=== PATIENT | male | born 1995 | race Caucasian/White ===

== ENCOUNTER 2018-11-03 12:35 | Emergency (ER) | payer OTHER ==
[2018-11-03 12:55] VITALS: BP 145/70
--- NOTE | 2018-11-03 13:28 | UC ---
Back Pain HPI - HPI Summary HPI Summary: 23-year-old male comes in with a chief complaint of low back pain. Pain started today while lifting and twisting and bending at work. Pains in the low back and does radiate some to the left upper buttock. Pain does not go down the legs no weakness no numbness no difficulty controlling urine or bowels. Pain is worse with twisting turning and bending especially with leaning forward. Patient did take some ibuprofen which helped briefly but then the pain came back. No prior history of back problems. - History of Current Complaint Chief Complaint: UCBackPain Stated Complaint: LOW BACK INJ Time Seen by Provider: 11/03/18 13:04 Pain Intensity: 5 - Allergies/Home Medications Allergies/Adverse Reactions: Allergies Allergy/AdvReac Type Severity Reaction Status Date / Time No Known Allergies Allergy Verified 11/03/18 12:48 Home Medications: Home Medications NK [No Home Medications Reported] 11/03/18 [History Confirmed 11/03/18] PMH/Surg Hx/FS Hx/Imm Hx Previously Healthy: Yes - Surgical History Surgical History: Yes Surgery Procedure, Year, and Place: LEFT WRIST- PLATE/SCREWS - Family History Known Family History: Positive: Non-Contributory - Social History Alcohol Use: Occasionally Substance Use Type: None Smoking Status (MU): Never Smoked Tobacco - Immunization History Most Recent Tetanus Shot: UNK Review of Systems All Other Systems Reviewed And Are Negative: Yes Constitutional: Positive: Negative Skin: Positive: Negative Eyes: Positive: Negative ENT: Positive: Negative Respiratory: Positive: Negative Cardiovascular: Positive: Negative Gastrointestinal: Positive: Negative Genitourinary: Positive: Negative Motor: Positive: Negative Neurovascular: Positive: Negative Musculoskeletal: Positive: Other: - SEE HPI Neurological: Positive: Negative Psychological: Positive: Negative Is Patient Immunocompromised?: No Physical Exam Triage Information Reviewed: Yes Appearance: Well-Appearing, Well-Nourished, Pain Distress - MILD WITH LOW BACK ROM Vital Signs: Initial Vital Signs Temp 98.5 F 11/03/18 12:49 Pulse 60 11/03/18 12:49 Resp 16 11/03/18 12:49 BP 145/70 11/03/18 12:49 Pulse Ox 99 11/03/18 12:49 Vital Signs Reviewed: Yes Eye Exam: Normal Eyes: Positive: Conjunctiva Clear Neck: Positive: Supple Respiratory: Positive: No respiratory distress Musculoskeletal: Positive: Other: - tender to palpation mid lumbar spine and just to the left of the lower lumbar spine. No sensation deficit. Lower extremities strength 5 out of 5 bilaterally. Pain does increase with left hip flexion. Patellar reflexes 1+ bilaterally. Lower extremities have full range of motion. Neurological: Positive: Alert, Muscle Tone Normal Psychological: Positive: Age Appropriate Behavior Skin Exam: Normal Back Pain Course/Dx - Course Course Of Treatment: Patient will take ibuprofen as needed. Also recommended using an over-the- counter lidocaine patch. Can also use cold on his back. We discussed stretching to help with the back. Let the patient out of work until November 07, 2018 when he can return without restrictions. If he is not completely improved by that time he will follow-up with occupational medicine doctor soon. We discussed the need to get reevaluated sooner if he has any worsening of condition or questions or concerns. - Differential Dx/Diagnosis Provider Diagnosis: Low back pain Discharge - Sign-Out/Discharge Documenting (check all that apply): Patient Departure All imaging exams completed and their final reports reviewed: No Studies - Discharge Plan Condition: Stable Disposition: HOME Patient Education Materials: Acute Low Back Pain (ED), Lower Back Exercises (ED ) Forms: *Work Release Referrals: Lakesha St MD [Primary Care Provider] - Hernando Chou MD [Medical Doctor] - Additional Instructions: FOLLOW UP WITH DR CHOU, OCCUPATIONAL MEDICINE, IF NOT COMPLETELY IMPROVED. GET REEVALUATED SOONER IF WORSE; PAIN, WEAKNESS, NUMBNESS, LOSS OF CONTROL OF BOWEL OR BLADDER OR ANY QUESTIONS OR CONCERNS. - Billing Disposition and Condition Condition: STABLE Disposition: Home
== END 2018-11-03 13:33 | disposition home or self-care (01) ==
LOC: UCCORT 12:35
DX: M54.5 Low back pain (principal)
CPT/HCPCS: 99201; G0463